=== PATIENT | female | born 1990 | race Two or more races ===

== ENCOUNTER 2025-10-23 14:46 | Emergency (ER) | payer MEDICAID, SELFPAY ==
[2025-10-23 14:47] VITALS: BMI 50.1
[2025-10-23 15:09] VITALS: BP 137/93; PULSE 93; RESP 18; TEMP 36.6; O2SAT 98
--- NOTE | 2025-10-23 16:22 | PD.EDADULT ---
ED General RME/HPI General Chief complaint: Skin/Abscess/Foreign Body Stated complaint: R KNEE WOUND Time Seen by Provider: 10/23/25 16:16 Arrival date/time: 10/23/25 14:46 CC: Old laceration on right knee is oozing HPI patient had the laceration and the Steri-Strips have been slowly worn off. The site continues to ooze yellow stuff, the patient stated smells bad . Patient denies fever chills shortness of breath or difficulty breathing. Related Data Previous Rx's ?Medication ?Instructions ?Recorded sulfamethoxazole 800 1 tab PO Q12H #14 tabs 10/06/21 mg-trimethoprim 160 mg tablet (Bactrim DS) Allergies Allergy/AdvReac Type Severity Reaction Status Date / Time No Known Allergies Allergy Unknown UNKNOWN Verified 10/23/25 14:51 Review of Systems Review of Systems Narrative Review of Systems: GEN: No fever, no chills, no weight loss EYES: No discharge, no visual changes, no pain HEENT: No ear pain, no congestion, no sore throat PULM: No shortness of breath, no cough, no congestion CV: No chest pain, no dyspnea on exertion, no palpitations GI: No nausea, no vomiting, no diarrhea, no pain, no constipation : No frequency, no urgency, no dysuria MUSC/SKEL: No joint pain, no back pain SKIN: No rash PSYCH: No hallucinations, no depression HEME/LYMPH: No easy bleeding or bruising tendencies NEURO: No weakness, no headache Past Medical History Social History SMOKING STATUS: Never smoker ED Exam Narrative Physical exam: [General: Morbidly obese not in any cute distress Head normocephalic HEENT: Within acceptable limits Neck is supple nontender Chest equal chest rise nontender to palpation Respiratory: Clear to auscultation no wheezes crackles or rubs CV: Rate rhythm is regular no murmurs rubs or clicks Abdomen is distended secondary to body habitus soft nontender no masses positive bowel sounds all 4 quadrants Back: No CVA tenderness no spinous process tenderness from cervical spine thoracic and lumbar spine Skin: 1 cm horizontal full-thickness laceration with poor healing and that is oozing small amount of exudate no surrounding erythema nontender to palpation no streaking not warm to touch. Otherwise skin is intact no petechiae rash induration ulceration or crepitus Extremities: Moving all extremity against resistance cap refill less than 2 seconds neurosensory intact Neuro: Awake alert oriented x3 Glascow coma 15 no focal deficits] Course Course Course Narrative: This is a laceration which that should never have been Steri-Stripped but sutured because of the tension placed on it as it overlies the patella. Now we have a wound that needs to heal from the inside this was expressed to the patient, and she needs to be patient allow this to heal on its own and continue to drain. Quality Measures none Vital Signs Vital signs: Vital Signs Temperature 97.9 F 10/23/25 15:09 Pulse Rate 93 10/23/25 15:09 Respiratory Rate 18 10/23/25 15:09 Blood Pressure 137/93 H 10/23/25 15:09 Pulse Oximetry (%) 98 10/23/25 15:09 Oxygen Delivery Method Room Air 10/23/25 15:09 Discharge Plan Plan Patient Disposition: HOME (Self Care) Patient condition on transfer: Stable Prescriptions/Referrals Prescriptions/Med Rec: No Action sulfamethoxazole-trimethoprim [Bactrim DS] 800-160 mg tablet 1 tab PO Q12H Qty: 14 0RF Problem List Clinical Impression: Visit for wound care Patient/Caregiver Discharge Instructions Education Materials: ED Wound Care Additional Instructions: Change the dressing once a day keep the site clean and dry it will close over time if there is a worsening of redness surrounding it with exquisite pain and red streaking up the leg return to the emergency room for reevaluation. Print Language: Sinhala Stand Alone Forms: Maegan Award Info., Patient Portal Info Letter PA/SANDRA Supervising Physician PA/SANDRA Supervising Physician: Anselmo Fernandez ENP MDM Clinical Information Provided by: none Medical Records reviewed None Meds/Rx considered, not ordered None Chronic Illness/Social Conditions Explain: Morbid obesity EKG EKG not done Labs Labs: none Imaging Imaging interpretation: none Medication Administration(s) none Diagnosis Differential Diagnosis ED Complaint MDM: Suture dehiscence, cellulitis, infected suture site
[2025-10-23] MEDS: DIPHTH,PERTUSS(ACELL),TET VAC 0.5 ML SYR- ADULT IMi (16:40)
== END 2025-10-23 16:51 | disposition home or self-care (01) ==
LOC: SERX 16:31
PROVIDERS: Emergency Provider Emergency Medicine; PCP Family Medicine
DX: S81.011D Laceration without foreign body, right knee, subsequent encounter (principal); X58.XXXD Exposure to other specified factors, subsequent encounter; Z23 Encounter for immunization
CPT/HCPCS: 90471; 90715; 99281